=== PATIENT | female | born 1995 ===

== ENCOUNTER 2017-12-19 20:40 | Emergency (ER) | payer MEDICAID ==
[2017-12-19 20:54] VITALS: BMI 23.8
[2017-12-19 20:57] VITALS: RESP 18; TEMP 98.2
--- NOTE | 2017-12-19 21:48 | ED PDOC ---
Arrival/HPI - General Chief Complaint: Abnormal Skin Integrity Time Seen by Provider: 12/19/17 21:43 Historian: Patient - History of Present Illness Narrative History of Present Illness (Text): 12/19/17 21:44 Patient is a 22 year old female who presents to the ED with left index finger laceration x 2 hrs ago while cutting food in her kitchen at home. Pt reports it bled for 10-15 minutes into the sink until she applied pressure and decided to come to the ED. Denies loss of sensation or muscle function or any other complaints at this time Past Medical History - Provider Review Nursing Documentation Reviewed: Yes - Travel History Have you recently traveled outside [place] w/in the past 3 mons?: No - Past History Past History: No Previous - Infectious Disease Hx of Infectious Diseases: None - Reproductive Currently : Yes - Past Medical History Past Medical History: No Previous - Cardiac Hx Cardiac Disorders: No - Pulmonary Hx Respiratory Disorders: No - Neurological Hx Neurological Disorder: No - HEENT Hx HEENT Disorder: No - Renal Hx Renal Disorder: No - Psychiatric Hx Substance Use: No - Anesthesia Hx Anesthesia: No Family/Social History - Physician Review Nursing Documentation Reviewed: Yes Family/Social History: Unknown Family HX Smoking Status: Never Smoked Hx Alcohol Use: No Hx Substance Use: No Allergies/Home Meds Allergies/Adverse Reactions: Allergies No Known Allergies Allergy (Verified 12/19/17 20:54) Home Medications: Home Meds Medication Instructions Recorded Confirmed Vit No.126/Iron/Folic 1 tab PO DAILY 12/19/17 12/19/17 [Classic Tablet] Review of Systems - Review of Systems Constitutional: Normal Eyes: Normal ENT: Normal Respiratory: Normal Cardiovascular: Normal Gastrointestinal: Normal Genitourinary Female: Normal Musculoskeletal: Normal Skin: Normal, Laceration (left index finger) Neurological: Normal Endocrine: Normal Hemo/Lymphatic: Normal Psychiatric: Normal Physical Exam Vital Signs Reviewed: Yes Vital Signs Temp Pulse Resp BP Pulse Ox 12/19/17 22:25 79 18 108/84 99 12/19/17 20:56 98.2 F 68 18 95/58 L 97 Temperature: Afebrile Blood Pressure: Normal Pulse: Regular Respiratory Rate: Normal Appearance: Positive for: Well-Appearing, Non-Toxic, Comfortable Pain Distress: Mild Mental Status: Positive for: Alert and Oriented X 3 - Systems Exam Head: Present: Atraumatic, Normocephalic Extroacular Muscles: Present: EOMI Respiratory/Chest: Present: Clear to Auscultation, Good Air Exchange. No: Respiratory Distress, Accessory Muscle Use Cardiovascular: Present: Regular Rate and Rhythm, Normal S1, S2. No: Murmurs Abdomen: Present: Normal Bowel Sounds. No: Tenderness, Distention, Peritoneal Signs Back: Present: Normal Inspection Upper Extremity: Present: Normal Inspection. No: Cyanosis, Edema Lower Extremity: Present: Normal Inspection. No: Edema Neurological: Present: GCS=15, CN II-XII Intact, Speech Normal Skin: Present: Warm, Dry, Normal Color, Laceration (left index finger, lateral aspect). No: Rashes Psychiatric: Present: Alert, Oriented x 3, Normal Insight, Normal Concentration Medical Decision Making ED Course and Treatment: 12/19/17 21:48 Patient is a 22 year old female who presents to the ED with left index finger laceration x 2 hrs ago while cutting food in her kitchen at home On PE, left index finger on the IP jt of the lateral aspect, 1.5 cm with a depth of 1.5mm, non-bleeding and clean edges Plan Dermabond Instructions to pt on wound care after Dermabond applied Progress Plan Dermabond applied in 2 layers Pt dc home with instructions to follow up with PMD in the next 5 days for a wound check 12/19/17 22:10 - Procedure PROCEDURE NOTE (Text): 12/20/17 01:34 PROCEDURE: LACERATION REPAIR Location: Left index finger Length: 1.5 cm Description: clean wound edges and no foreign bodies Distal CMS: ~Normal, Neurovascularly intact. Anesthesia: None required Preparation: The wound was cleaned with NS The area was prepped and draped in the usual sterile fashion. Exploration: ~ The wound was explored and no foreign bodies were found. Procedure: The wound was closed with Dermabond There was good approximation. Post-Procedure: ~Good closure and hemostasis.~ The patient tolerated the procedure well and there were no complications.~ CSM remains intact.~ Post procedure dressing applied. Disposition/Present on Arrival - Present on Arrival Any Indicators Present on Arrival: Yes History of DVT/PE: No History of Uncontrolled Diabetes: No Urinary Catheter: No History of Decub. Ulcer: No History Surgical Site Infection Following: None - Disposition Have Diagnosis and Disposition been Completed?: Yes Diagnosis: Laceration Disposition: HOME/ ROUTINE Disposition Time: 22:12 Condition: GOOD Discharge Instructions (ExitCare): Laceration Repair With Glue (DC) Additional Instructions: Please follow instructions of the handout we have supplied you. See your Primary doctor in the next 5 days for a wound check. Cover the wound while showering or bathing until there is good healing Referrals: Vee Berrios MD [Primary Care Provider] - Follow up with primary Forms: [employer] [facility] [employer] (Bengali)
[2017-12-19 22:25] VITALS: PULSE 79; O2SAT 99
[2017-12-19 22:27] VITALS: BP 108/84
== END 2017-12-19 22:20 | disposition home or self-care (01) ==
LOC: ED 20:40
DX: S61.211A Laceration without foreign body of left index finger without damage to nail, initial encounter (principal); W26.0XXA Contact with knife, initial encounter; Y93.G1 Activity, food preparation and clean up; Y92.000 Kitchen of unspecified non-institutional (private) residence as the place of occurrence of the external cause

== ENCOUNTER 2018-03-28 12:13 | Emergency (ER) | payer MEDICAID ==
--- NOTE | 2018-03-28 12:26 | ED PDOC ---
Arrival/HPI - General Time Seen by Provider: 03/28/18 12:21 Historian: Patient - History of Present Illness Narrative History of Present Illness (Text): 03/28/18 12:23 22 year old female, who is 38 weeks , presents to the Emergency department complaining of contractions that began this morning at 11:00. Contractions were 5 minutes apart at that time; while in the Emergency department, contractions are 1 minute apart. Patient is due to give on April 10. This is the patient's second ; first culminated in a 24 hour delivery and the baby was healthy. Patient denies any fever, chills, chest pain, nausea, vomiting, diarrhea, headache, dizziness, or any other complaints. Time/Duration: 1-3 hours Symptom Onset: Sudden Symptom Course: Unchanged Context: Home Past Medical History - Provider Review Nursing Documentation Reviewed: Yes - Past History Past History: No Previous - Infectious Disease Hx of Infectious Diseases: None - Past Medical History Past Medical History: No Previous - Cardiac Hx Cardiac Disorders: No - Pulmonary Hx Respiratory Disorders: No - Neurological Hx Neurological Disorder: No - HEENT Hx HEENT Disorder: No - Renal Hx Renal Disorder: No - Psychiatric Hx Substance Use: No - Anesthesia Hx Anesthesia: No Family/Social History - Physician Review Nursing Documentation Reviewed: Yes Family/Social History: Unknown Family HX Smoking Status: Never Smoked Hx Alcohol Use: No Hx Substance Use: No Allergies/Home Meds Allergies/Adverse Reactions: Allergies No Known Allergies Allergy (Verified 03/28/18 12:30) Home Medications: Home Meds Medication Instructions Recorded Confirmed Vit No.126/Iron/Folic 1 tab PO DAILY 12/19/17 03/28/18 [Classic Tablet] Review of Systems - Physician Review All systems were reviewed & negative as marked: Yes - Review of Systems Constitutional: absent: Fevers Cardiovascular: absent: Chest Pain Gastrointestinal: absent: Diarrhea, Nausea, Vomiting Physical Exam Vital Signs Reviewed: Yes Vital Signs Temp Pulse Resp BP Pulse Ox 03/28/18 12:51 87 18 89/59 L 99 03/28/18 12:30 98.2 F 90 17 92/61 L 98 - Systems Exam Head: Present: Atraumatic, Normocephalic Pupils: Present: PERRL Extroacular Muscles: Present: EOMI Conjunctiva: Present: Normal Mouth: Present: Moist Mucous Membranes Neck: Present: Normal Range of Motion Respiratory/Chest: Present: Clear to Auscultation, Good Air Exchange. No: Respiratory Distress, Accessory Muscle Use Cardiovascular: Present: Regular Rate and Rhythm, Normal S1, S2. No: Murmurs Abdomen: No: Tenderness, Distention, Peritoneal Signs Genitourinary/Pelvic Exam: Present: Other (Vaginal exam with Betadine performed. Membrane intact, presentation is vertex, 1+ station, 6 centimeters, 70% effaced.) Back: Present: Normal Inspection Upper Extremity: Present: Normal Inspection. No: Cyanosis, Edema Lower Extremity: Present: Normal Inspection. No: Edema Neurological: Present: GCS=15, CN II-XII Intact, Speech Normal Skin: Present: Warm, Dry, Normal Color. No: Rashes Psychiatric: Present: Alert, Oriented x 3, Normal Insight, Normal Concentration Medical Decision Making ED Course and Treatment: 03/28/18 12:30 Impression: 22 year old female, who is 38 weeks , presents to the Emergency department complaining of contractions that are 1 minute apart. Plan: -- Labs -- Reassess and disposition Prior Visits: Notes and results from previous visits were reviewed. Patient was last seen in the emergency department on Progress Notes: 03/28/18 12:30 Patient is to be transferred to [facility] because it is the closest location that will deliver a baby. 03/28/18 12:47 Discussed case in detail with Dr. Petersen, labor and delivery at [facility], who will accept the patient. 03/28/18 12:49 Patient reevaluated prior to entering ambulance. Patient is at 1+ station, 6 centimeters, 70% effaced. - Scribe Statement The provider has reviewed the documentation as recorded by the Scribfrederic Moore All medical record entries made by the Scribe were at my direction and personally dictated by me. I have reviewed the chart and agree that the record accurately reflects my personal performance of the history, physical exam, medical decision making, and the department course for this patient. I have also personally directed, reviewed, and agree with the discharge instructions and disposition. Disposition/Present on Arrival - Present on Arrival Any Indicators Present on Arrival: No History of DVT/PE: No History of Uncontrolled Diabetes: No Urinary Catheter: No History Surgical Site Infection Following: None - Disposition Have Diagnosis and Disposition been Completed?: Yes Diagnosis: Term Disposition: Transfer [facility] Disposition Time: 12:57 Patient Plan: Transfer To ([facility]) Condition: GOOD Additional Instructions: Go directly to Labor and Delivery- [facility] by EMS. Referrals: Vee Berrios MD [Primary Care Provider] - Follow up with primary
[2018-03-28 12:31] VITALS: BMI 24.9
[2018-03-28 12:34] VITALS: TEMP 98.2
[2018-03-28 12:52] VITALS: BP 89/59; PULSE 87; RESP 18; O2SAT 99
[2018-03-28 13:12] LABS: BASO # 0.01 K/mm3 (0.0-2.0); BASO % 0.1 % (0.0-3.0); EOS % 0.1 % (1.5-5.0); GRAN # 7.68 (1.4-6.5); GRAN % 83.4 % (50.0-68.0); HEMOGLOBIN 11.8 g/dL (12.0-16.0); LYMPH # 1.1 (1.2-3.4); LYMPH % 11.4 % (22.0-35.0); MEAN CELL VOLUME 89.5 fl (80.0-105.0); MEAN CORPUSCULAR HEMOGLOBIN 30.2 pg (25.0-35.0); MEAN CORPUSCULAR HGB CONC 33.7 g/dl (31.0-37.0); MONO # 0.5 (0.1-0.6); RBC 3.91 10^6/uL (3.5-6.1); RED CELL DISTRIBUTION WIDTH 16.4 % (11.5-14.5); WHITE BLOOD COUNT 9.2 10^3/ul (4.5-11.0)
[2018-03-28 13:24] LABS: BLOOD UREA NITROGEN 5 mg/dL (7-21); CALCIUM 9.2 mg/dL (8.4-10.5); GFR AFRICAN-AMERICAN > 60; GFR NON-AFRICAN AMERICAN > 60
[2018-03-28 13:25] LABS: ALB/GLOB RATIO 1.2 (1.1-1.8); ALBUMIN 3.7 g/dL (3.0-4.8); ALT/SGPT 24 U/L (7-56); AST/SGOT 15 U/L (14-36)
== END 2018-03-28 12:55 | disposition short-term general hospital (02) ==
LOC: ED 12:13
DX: Z34.93 Encounter for supervision of normal pregnancy, unspecified, third trimester (principal); Z3A.38 38 weeks gestation of pregnancy
CPT/HCPCS: 80053; 85025; 86850; 86900; 99283; J7120